=== PATIENT | female | born 1995 | race Caucasian/White ===

== ENCOUNTER → 2022-12-30 11:07 | Outpatient (CLI) | payer OTHER, SELFPAY ==
[2022-12-30 13:43] LABS: Urine N gonorrhoeae NOT DETECTED
[2022-12-30 13:44] LABS: Urine Chlamydia NOT DETECTED
== END ==
PROVIDERS: Visit Provider Student in an Organized Health Care Education/Training Program
DX: R30.0 Dysuria (principal); Z11.3 Encounter for screening for infections with a predominantly sexual mode of transmission
CPT/HCPCS: 87077; 87086; 87186; 87491; 87591

== ENCOUNTER → 2023-04-05 17:29 | Outpatient (CLI) | payer OTHER, SELFPAY | PROVIDERS: Visit Provider Nurse Practitioner Family | DX: R30.0 Dysuria (principal) | CPT/HCPCS: 87086 ==